=== PATIENT | female | born 1985 | race African-American/Black ===

== ENCOUNTER 2018-04-04 03:11 | Emergency (ER) | payer MEDICAID ==
[~2018-04-04] VITALS: Ht 157.5 cm; Wt 71.8 kg
[2018-04-04 03:15] VITALS: BP 135/78
== END 2018-04-04 04:26 | disposition home or self-care (01) ==
LOC: ED 04:24
DX: H01.001 Unspecified blepharitis right upper eyelid (principal)
CPT/HCPCS: 99283

== ENCOUNTER 2018-08-09 19:04 | Emergency (ER) | payer MEDICAID ==
[~2018-08-09] VITALS: Ht 157.5 cm; Wt 72.4 kg
[2018-08-09 19:09] VITALS: BP 142/95
[2018-08-09] MEDS ORDERED: PHENAZOPYRIDINE 200 MG TABLET PO ONE (19:30)
[2018-08-09] MEDS ORDERED: PHENAZOPYRIDINE 200 MG TABLET ONE (19:31)
[2018-08-09 19:43] LABS: CULTURE INDICATED? YES; MICROSCOPIC INDICATED
== END 2018-08-09 20:48 | disposition home or self-care (01) ==
LOC: ED 19:40
DX: N30.01 Acute cystitis with hematuria (principal)
CPT/HCPCS: 81001; 81025; 87077; 87086; 87186; 99283